=== PATIENT | male | born 1980 | race Caucasian/White ===

== ENCOUNTER → 2021-02-12 | Outpatient (CLI) | payer OTHER ==
[2021-02-12 13:06] LABS: BASO # 0.03 (0.02-0.10); EOS # 0.13 (0.04-0.40); EOS % 1.7 % (0.0-4.0); HEMATOCRIT 47.1 % (42.0-52.0); LYMPH# 1.88 (1.50-4.00); MEAN CELL VOLUME 86 fl (78-100); MEAN CORPUSCULAR HEMOGLOBIN 29 pg (27-31); MEAN CORPUSCULAR HGB CONC 34 g/dL (33-37); MEAN PLATELET VOLUME 10.1 fl (7.4-10.4); MONO # 0.72 (0.20-0.80); NEU # 4.69 (1.40-6.50); PLATELET COUNT 185 K/mm3 (130-400); RED BLOOD COUNT 5.49 M/mm3 (4.20-5.60); RED CELL DISTRIBUTION WIDTH 12.3 % (11.5-14.5); WHITE BLOOD COUNT 7.5 K/mm3 (4.8-10.8)
[2021-02-12 13:14] LABS: ALBUMIN 4.6 g/dL (3.5-5.0); POTASSIUM 4.1 mmol/L (3.5-5.1); SODIUM 141 mmol/L (136-145)
[2021-02-12 13:15] LABS: CALCIUM 9.3 mg/dL (8.3-10.5)
[2021-02-12 13:16] LABS: GLUCOSE 97 mg/dL (75-110); TOTAL PROTEIN 7.3 g/dL (6.4-8.3)
[2021-02-12 13:17] LABS: CARBON DIOXIDE 25 mmol/L (22-29)
[2021-02-12 13:21] LABS: AST-SGOT 20 U/L (5-34)
[2021-02-12 13:23] LABS: ALT/SGPT 23 U/L (0-55)
[2021-02-12 14:46] LABS: ERYTHROCYTE SEDIMENTATION RATE 0 mm/hr (0-15)
[2021-02-12 22:17] LABS: TESTOSTERONE 462 ng/dL (240-871)
== END ==
LOC: LAB 12:47
PROVIDERS: Internal Medicine
DX: N52.9 Male erectile dysfunction, unspecified (principal); R20.2 Paresthesia of skin; R10.32 Left lower quadrant pain

== ENCOUNTER → 2021-04-13 | Outpatient (CLI) | payer OTHER | LOC: RAD 09:50 | DX: R10.32 Left lower quadrant pain (principal) | CPT/HCPCS: Q9967 ==

== ENCOUNTER → 2022-02-01 | Outpatient (CLI) | payer OTHER ==
[2022-02-01 12:46] LABS: BASO # 0.03 K/mm3 (0.02-0.10); EOS # 0.06 K/mm3 (0.04-0.40); EOS % 0.8 % (0.0-4.0); HEMATOCRIT 45.3 % (42.0-52.0); MEAN CELL VOLUME 87 fl (78-100); MEAN CORPUSCULAR HEMOGLOBIN 29 pg (27-31); MEAN CORPUSCULAR HGB CONC 33 g/dL (33-37); MEAN PLATELET VOLUME 9.6 fl (7.4-10.4); MONO # 0.73 K/mm3 (0.20-0.80); NEU # 4.69 K/mm3 (1.40-6.50); PLATELET COUNT 177 K/mm3 (130-400); RED BLOOD COUNT 5.24 M/mm3 (4.20-5.60); RED CELL DISTRIBUTION WIDTH 12.6 % (11.5-14.5); WHITE BLOOD COUNT 7.4 K/mm3 (4.8-10.8)
[2022-02-01 13:05] LABS: ALBUMIN 4.5 g/dL (3.5-5.0)
[2022-02-01 13:06] LABS: CALCIUM 9.3 mg/dL (8.3-10.5)
[2022-02-01 13:09] LABS: TOTAL BILIRUBIN 0.7 mg/dL (0.2-1.2)
== END ==
LOC: LAB 12:21
PROVIDERS: Internal Medicine
DX: Z00.00 Encounter for general adult medical examination without abnormal findings (principal); Z12.5 Encounter for screening for malignant neoplasm of prostate; G25.81 Restless legs syndrome; F41.1 Generalized anxiety disorder; Z28.39 Other underimmunization status